=== PATIENT | female | born 1970 | race Caucasian/White ===

== ENCOUNTER 2017-05-04 12:55 | Emergency (ER) | payer OTHER ==
[2017-05-04 12:59] VITALS: BP 115/83; PULSE 64; TEMP 98.2; BMI 24.0
[2017-05-04] MEDS ORDERED: DEXAMETHASONE SOD PHOSPHATE 10 MG/1 ML VIAL IVPUSH ONE (13:26)
[2017-05-04] MEDS ORDERED: METOCLOPRAMIDE HCL INJECTION 10 MG/2 ML VIAL IVPUSH ONE (13:26)
[2017-05-04] MEDS ORDERED: SODIUM CHLORIDE 1,000 ML IV STA (13:26)
[2017-05-04] MEDS ORDERED: KETOROLAC TROMETHAMINE 30 MG/1 ML VIAL IVPUSH ONE (13:26)
--- NOTE | 2017-05-04 13:26 | PDOC ---
History of Present Illness - General Chief Complaint: Migraine Headache Stated Complaint: migriane Time Seen by Provider: 05/04/17 13:06 History Source: Patient Exam Limitations: No Limitations - History of Present Illness Initial Comments: 05/04/17 13:20 46 y/o female with history of migraines, took two Triptans today with no relief. Vomited today and light sensitivity. No fall or trauma. Denies fever or neck pain. Typical for her migraines. No SOB or chest pain. No weakness. Nor worse than usual for her headache. Denies blurred vision. Severity: Yes: moderate Associated Symptoms: reports: nausea/vomiting. denies: paresthesia, slurred speech Past History - Past Medical History Allergies/Adverse Reactions: Allergies Allergy/AdvReac Type Severity Reaction Status Date / Time dimenhydrinate AdvReac Verified 05/04/17 12:55 [From Dramamine] Home Medications: Ambulatory Orders Bupropion HCl [Wellbutrin Xl -] 150 mg PO DAILY 12/08/14 Clonazepam [KlonoPIN] 0.5 mg PO PRN PRN 12/08/14 COPD: No Seizures: Yes (ANXIETY, DEPRESSION) Other medical history: migrianes - Suicide/Smoking/Psychosocial Hx Smoking History: Never smoked Have you smoked in the past 12 months: No Hx Alcohol Use: Yes Drug/Substance Use Hx: No Substance Use Type: Alcohol Review of Systems - Review of Systems Able to Perform ROS?: Yes Is the patient limited Latvian proficient: No Constitutional: No: Chills, Fever HEENTM: No: Blurred Vision Respiratory: No: Cough, Shortness of Breath Cardiac (ROS): No: Chest Pain ABD/GI: Yes: Nausea, Vomiting Musculoskeletal: No: Back Pain, Muscle Pain Neurological: Yes: Headache. No: Numbness, Paresthesia All Other Systems: Reviewed and Negative *Physical Exam - Vital Signs Last Vital Signs Temp Pulse Resp BP Pulse Ox 98.2 F 64 18 115/83 100 05/04/17 12:55 05/04/17 12:55 05/04/17 12:55 05/04/17 12:55 05/04/17 12:55 - Physical Exam General Appearance: Yes: Nourished, Appropriately Dressed. No: Apparent Distress HEENT: positive: EOMI, KEITH, Normal ENT Inspection, Pharynx Normal Neck: positive: Trachea midline, Normal Thyroid, Supple, Other (no menigeal signs noted). negative: Tender, Rigid Respiratory/Chest: positive: Lungs Clear, Normal Breath Sounds. negative: Chest Tender, Respiratory Distress Cardiovascular: positive: Regular Rhythm, Regular Rate, S1, S2. negative: Edema , JVD, Murmur Vascular Pulses: Femoral (R): 4+, Femoral (L): 4+, Carotid (R): 4+, Carotid (L) : 4+, Dorsalis-Pedis (R): 4+, Doralis-Pedis (L): 4+ Gastrointestinal/Abdominal: positive: Normal Bowel Sounds, Flat, Soft, Organomegaly. negative: Tender, Pulsatile Mass Musculoskeletal: positive: Normal Inspection. negative: CVA Tenderness Extremity: positive: Normal Capillary Refill, Normal Inspection, Normal Range of Motion, Tender Integumentary: positive: Normal Color, Dry, Warm Neurologic: positive: chef de froid II-XII NML intact, Fully Oriented, Alert, Normal Mood/ Affect (strength 5+/5 b/l in UE and LE, no focal deficits noted), Normal Response, Motor Strength 5/5 Progress Note - Progress Note Progress Note: Pt with a migraine headache will give IVF and medicatiosn to break cycle, pt is in agreement with plan. Pt is feeling much better, headache almost completely resolved Will discharge home Pt is in agreement with plan *DC/Admit/Observation/Transfer Diagnosis at time of Disposition: Migraine Qualifiers: Migraine type: unspecified Status migrainosus presence: without status migrainosus Intractability: not intractable Qualified Code(s): G43.909 - Migraine, unspecified, not intractable, without status migrainosus - Discharge Dispostion Disposition: HOME Condition at time of disposition: Improved Admit: No - Referrals - Patient Instructions Printed Discharge Instructions: DI for Migraine Additional Instructions: Continue current medications Follow up with Neurologist If worsen return to ER - Post Discharge Activity
[2017-05-04] MEDS ORDERED: KETOROLAC TROMETHAMINE 30 MG/1 ML VIAL ONE (13:43)
[2017-05-04] MEDS ORDERED: DEXAMETHASONE SOD PHOSPHATE 10 MG/1 ML VIAL ONE (13:43)
== END 2017-05-04 14:42 | disposition home or self-care (01) ==
LOC: FER 12:55
PROC: 3E033GC Introduction of Other Therapeutic Substance into Peripheral Vein, Percutaneous Approach (ICD-10-PCS; principal; 2017-05-04)
PROC: 3E0333Z Introduction of Anti-inflammatory into Peripheral Vein, Percutaneous Approach (ICD-10-PCS; 2017-05-04)
PROC: 3E0337Z Introduction of Electrolytic and Water Balance Substance into Peripheral Vein, Percutaneous Approach (ICD-10-PCS; 2017-05-04)
DX: G43.909 Migraine, unspecified, not intractable, without status migrainosus (principal); F41.8 Other specified anxiety disorders
CPT/HCPCS: 99281-25

== ENCOUNTER 2019-12-26 08:44 | Emergency (ER) | payer OTHER ==
[2019-12-26] MEDS ORDERED: ONDANSETRON *ODT* 4 MG TABLET SL ONE (08:50)
[2019-12-26] MEDS ORDERED: KETOROLAC TROMETHAMINE 30 MG/1 ML VIAL IM ONE (08:50)
--- NOTE | 2019-12-26 08:56 | PDOC ---
History of Present Illness - General Chief Complaint: Migraine Headache Stated Complaint: MIGRAINE HEADACHE Time Seen by Provider: 12/26/19 08:47 History Source: Patient Exam Limitations: No Limitations - History of Present Illness Initial Comments: 12/26/19 08:50 49 y/o female with hx of migraines presents with a headache this morning. Patient states that she vomited this morning and usually comes to ED once every few years for this. Headache appears to be getting better and light sensitivity is better. No visual disturbances. Denies fever or neck pain. No fall or trauma. Took one Amerge for headache but thinks she caught it too late. No numbness, slurred speech or weakness. Patient states this in not the worse headache in her life feels like her typical migraine. Takes Toradol in the past when this occurs. Severity: Yes: mild Associated Symptoms: reports: nausea/vomiting Past History - Medical History Allergies/Adverse Reactions: Allergies Allergy/AdvReac Type Severity Reaction Status Date / Time dimenhydrinate Allergy Intermediate Verified 12/26/19 08:47 [From Dramamine] Home Medications: Ambulatory Orders Bupropion HCl [Wellbutrin Xl -] 150 mg PO DAILY 12/08/14 clonazePAM [KlonoPIN] 0.5 mg PO PRN PRN 12/08/14 Estradiol [Yu] 1 each TD DAILY 12/26/19 Naratriptan HCl [Amerge -] 2.5 mg PO PRN 12/26/19 Ondansetron [Zofran *Odt*] 4 mg SL TID #10 od.tablet 12/26/19 Progesterone, Micronized [Progesterone] 100 mg PO DAILY 12/26/19 traZODone HCL [Trazodone HCl] 50 mg PO HS 12/26/19 COPD: No Seizures: Yes (ANXIETY, DEPRESSION) - Psycho-Social/Smoking History Smoking History: Never smoked Have you smoked in the past 12 months: No Review of Systems - Review of Systems Able to Perform ROS?: Yes Is the patient limited Luxembourgish proficient: No Constitutional: No: Chills, Fever Respiratory: No: Cough, Shortness of Breath Cardiac (ROS): No: Chest Pain ABD/GI: Yes: Vomiting Musculoskeletal: No: Joint Pain, Muscle Pain Neurological: Yes: Headache. No: Numbness All Other Systems: Reviewed and Negative *Physical Exam - Physical Exam General Appearance: Yes: Nourished, Appropriately Dressed. No: Apparent Distress HEENT: positive: EOMI, KEITH, Normal ENT Inspection, Normal Voice, Symmetrical, Pharynx Normal Neck: positive: Trachea midline, Normal Thyroid, Supple. negative: Tender, Rigid, Rigidity Respiratory/Chest: positive: Lungs Clear, Normal Breath Sounds. negative: Chest Tender, Respiratory Distress Cardiovascular: positive: Regular Rhythm, Regular Rate, S1, S2. negative: Edema, JVD, Murmur Vascular Pulses: Femoral (R): 4+, Femoral (L): 4+, Carotid (R): 4+, Carotid (L): 4+, Dorsalis-Pedis (R): 4+, Doralis-Pedis (L): 4+ Gastrointestinal/Abdominal: positive: Normal Bowel Sounds, Flat, Soft. negative: Tender, Organomegaly Lymphatic: negative: Adenopathy, Tenderness, Other Musculoskeletal: positive: Normal Inspection. negative: CVA Tenderness Extremity: positive: Normal Capillary Refill, Normal Inspection, Normal Range of Motion Integumentary: positive: Normal Color, Dry, Warm Neurologic: positive: water resources technical officer II-XII NML intact (strength 5+/5 b/l in UE and LE, no focal deficits noted, neg Kernig's sign, neg menigismus sign), Fully Oriented, Alert, Normal Mood/Affect, Normal Response, Motor Strength 5/5 ED Progress Note - Progress Note Progress Note: 12/26/19 08:55 49 y/o female with migraine headache, will give Zofran and Toradol Pt is in agreement with plan 12/26/19 10:11 Pt is feeling better, no vomiting Discharge - Discharge Information Problems reviewed: Yes Clinical Impression/Diagnosis: Migraine Qualifiers: Migraine type: unspecified Status migrainosus presence: without status migrainosus Intractability: not intractable Qualified Code(s): G43.909 - Migraine, unspecified, not intractable, without status migrainosus Condition: Improved Disposition: HOME - Follow up/Referral - Patient Discharge Instructions Patient Printed Discharge Instructions: DI for Migraine Additional Instructions: Fluids, rest Take another Amerge migraine medication at home if continues Zofran ODT 4 mg every 8 hr as needed If worsens return to ER - Post Discharge Activity
[2019-12-26 08:59] VITALS: BP 122/76; PULSE 85; TEMP 97.5; BMI 25.7
[2019-12-26] MEDS ORDERED: ONDANSETRON *ODT* 4 MG TABLET ONE (09:01)
[2019-12-26] MEDS ORDERED: KETOROLAC TROMETHAMINE 30 MG/1 ML VIAL ONE (09:01)
== END 2019-12-26 10:21 | disposition home or self-care (01) ==
LOC: FER 08:44
PROC: 3E0233Z Introduction of Anti-inflammatory into Muscle, Percutaneous Approach (ICD-10-PCS; principal; 2019-12-26)
DX: G43.909 Migraine, unspecified, not intractable, without status migrainosus (principal)
CPT/HCPCS: 99284-25; Q0162

== ENCOUNTER 2024-11-23 06:18 | Day surgery (SDC) | payer OTHER ==
[2024-11-22 09:32] VITALS: BMI 26.6
[2024-11-23 06:37] VITALS: RESP 18
[2024-11-23] MEDS ORDERED: SUCCINYLCHOLINE CHLORIDE 200 MG/10 ML SYRINGE ONE (07:12)
[2024-11-23] MEDS ORDERED: ROCURONIUM BROMIDE 50 MG/5 ML SYRINGE ONE (07:12)
[2024-11-23] MEDS ORDERED: PROPOFOL 40 ML ONE (07:13)
[2024-11-23] MEDS ORDERED: MIDAZOLAM HCL 2 MG/2 ML SINGLE DOSE VIAL ONE (07:15)
[2024-11-23] MEDS ORDERED: LACTATED RINGERS SOLUTION 1,000 ML IV SCH (07:45)
[2024-11-23] MEDS ORDERED: oxyCODONE HCL 5 MG TABLET PO PRN (07:51)
[2024-11-23] MEDS ORDERED: ONDANSETRON 4 MG/2 ML VIAL IVPUSH PRN (07:51)
[2024-11-23] MEDS ORDERED: IBUPROFEN 600 MG TABLET (FP) PO PRN (07:51)
[2024-11-23] MEDS ORDERED: IBUPROFEN 800 MG/8 ML IJ IVPB PRN (07:51)
[2024-11-23] MEDS ORDERED: DEXAMETHASONE SOD PHOSPHATE 4 MG/1 ML VIAL ONE (07:59)
[2024-11-23] MEDS ORDERED: ELECTROLYTE-148 SOLN 1,000 ML IV SCH (08:00)
[2024-11-23] MEDS ORDERED: ACETAMINOPHEN INJECTION 100 ML ONE (08:31)
[2024-11-23 12:03] VITALS: BP 111/61; PULSE 82; TEMP 97.9
== END 2024-11-23 11:40 | disposition home or self-care (01) ==
LOC: JASU-SURG 06:18
PROVIDERS: ATTEND Obstetrics & Gynecology
PROC: 0UDB8ZX Extraction of Endometrium, Via Natural or Artificial Opening Endoscopic, Diagnostic (ICD-10-PCS; principal; 2024-11-23 07:30)
DX: N84.0 Polyp of corpus uteri (principal); Z85.3 Personal history of malignant neoplasm of breast
CPT/HCPCS: 88305-TC; 94760